=== PATIENT | female | born 1970 | race Caucasian/White ===

== ENCOUNTER 2018-07-31 03:52 | Emergency (ER) | payer MEDICAID ==
[2018-07-31 04:35] LABS: URINE SOURCE RANDOM
[2018-07-31 04:40] LABS: URINE BILIRUBIN NEGATIVE (NEGATIVE); URINE BLOOD SMALL (NEGATIVE); URINE GLUCOSE (UA) >=1000 mg/dL (NEGATIVE); URINE KETONE 40 mg/dL (NEGATIVE); URINE LEUKOCYTE ESTERASE NEGATIVE (NEGATIVE); URINE MICROSCOPIC INDICATED? YES; URINE NITRATE NEGATIVE (NEGATIVE); URINE PROTEIN 100 mg/dL (NEGATIVE)
[2018-07-31] MEDS ORDERED: Albuterol/Ipratropium Neb 3 ML AERS HHN ONE ×2 (04:44→04:52)
--- NOTE | 2018-07-31 04:49 | ED Physician Chart ---
ED Chief Complaint/HPI - Patient Information Date Seen:: 07/31/18 Time Seen:: 04:30 Chief Complaint:: cough History of Present Illness:: Patient had a nonproductive cough for 2 days. She took her temperature yesterday and it was 90 according to the son. Apparently patient did not have influenza vaccination this season. Allergies:: Allergies Allergy/AdvReac Type Severity Reaction Status Date / Time No Known Allergies Allergy Verified 07/31/18 04:06 Vitals:: Vital Signs - 8 hr 07/31/18 03:55 Temp 99.5 F HR 115 RR 20 BP 142/77 O2 Sat % 99 Historian:: Patient, Family Member Review:: Nurse's Note Reviewed ED Review of Systems - Review of Systems General/Constitutional: Fever, Other (subjective fever) Skin: No skin lesions Head: No headache Eyes: No loss of vision ENT: No earache Neck: No neck pain Cardio Vascular: No chest pain, No palpitations Pulmonary: Cough GI: No nausea, No vomiting, No diarrhea Musculoskeletal: No bone or joint pain Endocrine: No polyuria Psychiatric: No prior psych history Hematopoietic: No bruising Allergic/Immuno: No urticaria Neurological: No syncope, No focal symptoms ED Past Medical History - Past Medical History Past Medical History: DM Family History: None Social History: Non Smoker, No Alcohol Surgical History: None Psychiatricy History: None Medication: Reviewed Family Medical History - Family Member Son History Unknown: Yes Ethnicity: Living Status: Still Living ED Physical Exam - Physical Examination General/Constitutional: Awake, Well-developed, well-nourished, Alert Head: Atraumatic Eyes: Lids, conjuctiva normal, PERRL Skin: Nl inspection ENMT: External ears, nose nl, TM canals nl, Nasal exam nl, Lips, teeth, gums nl , Oropharynx nl, Tonsils nl Neck: No nuchal rigidity Respiratory: Nl effort/Exclusion, Clear to Auscultation, No Wheeze/Rhonchi/Rales Cardio Vascular: RRR, No murmur, gallop, rubs GI: No tenderness/rebounding/guarding, No organomegaly : No CVA tenderness Extremities: Normal digits & nails Neuro/Psych: No focal deficits Misc: No paraspinal tenderness ED Labs/Radiology/EKG Results - Lab Results Results: Laboratory Tests 07/31/18 04:15 POC Glucose 359 H ED Septic Shock - . Is Septic Shock (SBP<90, OR Lactate>4 mmol\L) present?: No - <6hrs of presentation: Vital Signs: Vital Signs - 8 hr 07/31/18 03:55 Temp 99.5 F HR 115 RR 20 BP 142/77 O2 Sat % 99 ED Reassessment (Disposition) - Reassessment Reassessment:: After the breathing treatment patient's cough decreased. Influenza A and B are negative Antibiotics are not indicated for viral infection. Encourage patient and her son to get a influenza vaccination every year the end of February beginning of March. Reassessment Condition:: Improved - Diagnosis Diagnosis:: Viral bronchitis - Aftercare/Follow up Instructions Aftercare/Follow-Up Instructions:: Refer to Discharge Instructions Medication Prescribed:: Albuterol metered-dose inhaler to take 2 puffs every 4 hours as necessary for shortness of breath or cough - Patient Disposition Discharge/Transfer:: Home Condition at Disposition:: Stable, Improved
[2018-07-31 04:56] LABS: URINE CLARITY CLEAR (CLEAR); URINE COLOR YELLOW
[2018-07-31 05:01] LABS: URINE BACTERIA FEW /hpf (NONE SEEN); URINE EPITHELIAL CELLS OCCASIONAL /lpf (FEW); URINE RBC 0-2 /hpf (0-5)
[2018-07-31 05:31] LABS: INF A SCREEN NEG FOR INF A; INF B SCREEN NEG FOR INF B
== END 2018-07-31 05:56 | disposition home or self-care (01) ==
LOC: ER 03:52
DX: J20.8 Acute bronchitis due to other specified organisms (principal); E11.9 Type 2 diabetes mellitus without complications
CPT/HCPCS: 81001-TC; 82948-90; 87804-TC; 94640; Z7502